=== PATIENT | male | born 1980 | race Caucasian/White ===

== ENCOUNTER 2020-12-23 16:49 | Emergency (ER) | payer SELFPAY ==
[~2020-12-23] VITALS: Ht 177.8 cm; Wt 83.9 kg
[2020-12-23] MEDS ORDERED: NALOXONE HCL 1MG/ML 2ML SYRINGE ONE (19:03)
[2020-12-23] MEDS ORDERED: NALOXONE HCL 1MG/ML 2ML SYRINGE IV ONE (19:15)
[2020-12-23] MEDS ORDERED: levoFLOXacin 750MG 150 ML IV ONE (23:00)
[2020-12-24 05:45] VITALS: BP 112/67
== END 2020-12-24 05:51 | disposition home or self-care (01) ==
LOC: ER 16:49 → EDBD 16:49 → ER 12-24 05:51
DX: T40.1X1A Poisoning by heroin, accidental (unintentional), initial encounter (principal); R06.03 Acute respiratory distress; F17.210 Nicotine dependence, cigarettes, uncomplicated; Z88.0 Allergy status to penicillin; Y92.89 Other specified places as the place of occurrence of the external cause
CPT/HCPCS: 71045; 83605; 87040; 93005; 96365; 96366; 96375; 99285; J1956; J2310